=== PATIENT | male | born 1975 | race Caucasian/White ===

== ENCOUNTER 2017-03-26 22:42 | Emergency (ER) | payer SELFPAY, OTHER | END 2017-03-27 02:21 | disposition left against medical advice (07) | LOC: FTE 22:42 | DX: Z53.21 Procedure and treatment not carried out due to patient leaving prior to being seen by health care provider (principal) ==

== ENCOUNTER 2017-05-24 03:56 | Emergency (ER) | payer OTHER ==
[2017-05-24] MEDS: KETOROLAC 60 MG INJ IM (04:33)
== END 2017-05-24 05:05 | disposition home or self-care (01) ==
LOC: FTE 03:56
DX: E11.621 Type 2 diabetes mellitus with foot ulcer (principal); L97.519 Non-pressure chronic ulcer of other part of right foot with unspecified severity; I10 Essential (primary) hypertension; F17.210 Nicotine dependence, cigarettes, uncomplicated; Z91.040 Latex allergy status
CPT/HCPCS: 96372; 99284-25

== ENCOUNTER 2017-07-17 19:49 | Emergency (ER) | payer SELFPAY, OTHER | END 2017-07-17 21:19 | disposition left against medical advice (07) | LOC: FTE 19:49 | DX: Z53.21 Procedure and treatment not carried out due to patient leaving prior to being seen by health care provider (principal) ==

== ENCOUNTER 2017-07-21 02:29 | Emergency (ER) | payer OTHER ==
[2017-07-21] MEDS: ACETAMINOPHEN 500 MG TAB PO (03:15)
== END 2017-07-21 03:22 | disposition home or self-care (01) ==
LOC: FTE 02:29
DX: E11.621 Type 2 diabetes mellitus with foot ulcer (principal); L97.529 Non-pressure chronic ulcer of other part of left foot with unspecified severity; I10 Essential (primary) hypertension; F17.210 Nicotine dependence, cigarettes, uncomplicated
CPT/HCPCS: 99283; Z7502